=== PATIENT | female | born 1995 | race American Indian/Alaskan Native ===

== ENCOUNTER 2018-04-20 18:44 | Outpatient (CLI) | payer OTHER ==
[2018-04-20 22:36] VITALS: BP 114/66
== END 2018-04-20 20:30 | disposition home or self-care (01) ==
LOC: TRG 18:44 → US 18:44 → EDBD 18:44 → US 20:30
PROVIDERS: ATTEND Obstetrics & Gynecology
DX: O47.1 False labor at or after 37 completed weeks of gestation (principal); Z3A.38 38 weeks gestation of pregnancy
CPT/HCPCS: 59025

== ENCOUNTER 2018-04-30 00:14 | Outpatient (CLI) | payer OTHER ==
[2018-04-30 01:16] VITALS: BP 113/66
[2018-04-30 01:50] LABS: Amphetamine Screen,Urine PRESUMPTIVE NEGATIVE; Benzodiazepines Screen,Urine PRESUMPTIVE NEGATIVE; Cannabinoid Screen,Urine PRESUMPTIVE NEGATIVE; Cocaine Screen,Urine PRESUMPTIVE NEGATIVE; Methadone Screen,Urine PRESUMPTIVE NEGATIVE; Opiate Screen,Urine PRESUMPTIVE NEGATIVE
[2018-04-30] MEDS ORDERED: LACTATED RINGERS 1,000 ML ONE (02:33)
[2018-04-30 02:35] LABS: Bacteria,Urine 1+ /HPF (Negative); Bilirubin,Urine NEG (Negative); Blood,Urine NEG (Negative); Color,Urine Straw (Yellow); Protein,Urine <15 mg/dL mg/dL (Negative); Urobilinogen,Urine < 2.0 mg/dL (<2.0)
[2018-04-30 02:42] LABS: WBC,Urine < 1.0 /HPF (0.0-6.0)
== END 2018-04-30 03:18 | disposition home or self-care (01) ==
LOC: TRG 00:14
PROVIDERS: ATTEND Obstetrics & Gynecology
DX: O26.893 Other specified pregnancy related conditions, third trimester (principal); R10.9 Unspecified abdominal pain; M79.606 Pain in leg, unspecified; Z3A.38 38 weeks gestation of pregnancy; F17.210 Nicotine dependence, cigarettes, uncomplicated
CPT/HCPCS: 59025; 80307; 81001; 96360; J7120

== ENCOUNTER 2018-05-02 14:47 | Outpatient (CLI) | payer OTHER ==
[2018-05-02] MEDS ORDERED: LACTATED RINGERS 500 ML IV ONE (14:58)
[2018-05-02 16:28] VITALS: BP 117/60
[2018-05-02 17:31] LABS: Bilirubin,Urine NEG (Negative); Blood,Urine NEG (Negative); Color,Urine Colorless (Yellow); Protein,Urine <15 mg/dL mg/dL (Negative); Urobilinogen,Urine < 2.0 mg/dL (<2.0); WBC,Urine < 1.0 /HPF (0.0-6.0)
[2018-05-02 17:40] LABS: Amphetamine Screen,Urine PRESUMPTIVE NEGATIVE; Benzodiazepines Screen,Urine PRESUMPTIVE NEGATIVE; Cannabinoid Screen,Urine PRESUMPTIVE NEGATIVE; Cocaine Screen,Urine PRESUMPTIVE NEGATIVE; Methadone Screen,Urine PRESUMPTIVE NEGATIVE; Opiate Screen,Urine PRESUMPTIVE NEGATIVE
== END 2018-05-02 17:25 | disposition home or self-care (01) ==
LOC: TRG 14:47
PROVIDERS: ATTEND Obstetrics & Gynecology
DX: O47.1 False labor at or after 37 completed weeks of gestation (principal); Z3A.38 38 weeks gestation of pregnancy
CPT/HCPCS: 80307; 81001